=== PATIENT | female | born 1990 | race Hispanic/Latino ===

== ENCOUNTER 2023-05-18 07:31 | Emergency (ER) | payer OTHER ==
[~2023-05-18] VITALS: Ht 160 cm; Wt 85.2 kg
[2023-05-18] MEDS ORDERED: FURO20TA2 PO (07:47)
[2023-05-18] MEDS ORDERED: LISI10TA22 PO (07:48)
[2023-05-18] MEDS ORDERED: HYDR200T46 PO (07:48)
[2023-05-18 09:30] LABS: HEMATOCRIT 40.8 % (36.0-47.0); HEMOGLOBIN 13.5 g/dl (12.0-15.5); MEAN CORPUSCULAR HEMOGLOBIN 28.7 pg (27.0-33.0); MEAN CORPUSCULAR HGB CONC 33.1 g/dl (32.0-36.5); MEAN CORPUSCULAR VOLUME 86.8 fl (80.0-96.0); PLATELET COUNT, AUTOMATED 317 10^3/uL (150-450); WHITE BLOOD COUNT 15.6 10^3/uL (4.0-10.0)
[2023-05-18 09:50] LABS: RSV AMPLIFICATION NEGATIVE (NEGATIVE)
[2023-05-18 09:56] LABS: ALBUMIN 4.2 G/DL (3.2-5.2); ALKALINE PHOSPHATASE 60 U/L (46-116); ALT/SGPT 14 U/L (7.0-40); AST/SGOT 15 U/L (<34); BILIRUBIN,TOTAL 0.9 MG/DL (0.3-1.2); BLOOD UREA NITROGEN 16 MG/DL (9-23); CALCIUM LEVEL 9.8 MG/DL (8.5-10.1); CARBON DIOXIDE LEVEL 24 MMOL/L (20-31); CHLORIDE LEVEL 107 MMOL/L (98-107); CREATININE FOR GFR 0.64 MG/DL (0.55-1.30); GLOMERULAR FILTRATION RATE > 60.0 (>60); GLUCOSE, FASTING 119 MG/DL (60-100); POTASSIUM SERUM 3.4 MMOL/L (3.5-5.1); SODIUM LEVEL 140 MMOL/L (136-145); TOTAL PROTEIN 7.3 G/DL (5.7-8.2)
[2023-05-18 12:31] VITALS: BP 129/76; TEMP 98.2; O2SAT 100
[2023-05-18] MEDS ORDERED: NS 1,000 ML IV ONE (12:35)
[2023-05-18] MEDS ORDERED: KETOROLAC 30 MG/ML 1ML VIAL IV ONE (12:35)
[2023-05-18 12:52] LABS: LDH LACTATE DEHYDROGENASE 190 U/L (120-246)
[2023-05-18 12:53] LABS: CPK CREATINE PHOSPHOKINASE 49 U/L (34-145); RHEUMATOID FACTOR QUANT < 3.5 IU/ML (<14)
[2023-05-18 12:55] LABS: ERYTHROCYTE SEDIMENTATION RATE 30 mm/hr (0-20)
[2023-05-18] MEDS ORDERED: POTASSIUM CHL PWD 20MEQ PACKET PO ONE (13:25)
[2023-05-18] MEDS ORDERED: ACETAMINOPHEN TAB 650MG DOSE (2X325MG) PO ONE (13:30)
[2023-05-18] MEDS ORDERED: PREGABALIN 50 MG CAP (LYRICA) PO ONE (13:30)
[2023-05-18] MEDS ORDERED: KCL 10MEQ/100ML SWI (KRUN) 10 MEQ in IV 1 EA IV ONE ×2 (14:30→17:00)
[2023-05-18] MEDS ORDERED: ISOVUE-370 76% 100ML VIAL As Ordered ONE (14:33)
[2023-05-18] MEDS ORDERED: methylPREDNISolone 125MG 2ML VIAL IV ONE (14:55)
[2023-05-18] MEDS ORDERED: POTASSIUM CHLORIDE 10MEQ SR TABLET PO ONE (15:10)
[2023-05-18] MEDS ORDERED: PRED20TA PO (15:40)
[2023-05-18] MEDS ORDERED: IBUP-1022 PO (15:40)
[2023-05-19 12:07] LABS: ANTINUCLEAR ANTIBODIES DIRECT Negative (Negative)
== END 2023-05-18 15:50 | disposition home or self-care (01) ==
LOC: M ED 07:31
DX: M79.10 Myalgia, unspecified site (principal); Z87.39 Personal history of other diseases of the musculoskeletal system and connective tissue; Z79.899 Other long term (current) drug therapy; Z79.51 Long term (current) use of inhaled steroids; Z79.52 Long term (current) use of systemic steroids
CPT/HCPCS: 74177; 80053; 82550; 83615; 85027; 85652; 86038; 86431; 87631; 96374; 96375; 99284; J1885; J2930; Q9967

== ENCOUNTER 2023-12-21 10:37 | Day surgery (SDC) | payer OTHER ==
[~2023-12-21] VITALS: Ht 160 cm; Wt 91.2 kg
[~2023-12-21 10:37] MED LIST: B-12100010 PO; FURO20TA2 PO; HYDR200T46 PO; IBUP-1022 PO; LISI10TA22 PO; LR 1,000 ML IV SCH; MYCO500T PO; PRED20TA PO
[2023-12-21] MEDS ORDERED: LR 1,000 ML IV SCH (11:00)
[2023-12-21 11:34] LABS: HEMATOCRIT 43.4 % (36.0-47.0); HEMOGLOBIN 13.9 g/dl (12.0-15.5); MEAN CORPUSCULAR HEMOGLOBIN 28.8 pg (27.0-33.0); PLATELET COUNT, AUTOMATED 298 10^3/uL (150-450); RED BLOOD COUNT 4.82 10^6/uL (4.00-5.40); WHITE BLOOD COUNT 8.7 10^3/uL (4.0-10.0)
[2023-12-21] MEDS ORDERED: MIDAZOLAM INJ 2MG/2ML VIAL As Ordered ONE (13:17)
[2023-12-21] MEDS ORDERED: fentaNYL 100 MCG/2 ML INJECTION As Ordered ONE (13:17)
[2023-12-21] MEDS ORDERED: propofoL 200 MG/20 ML VIAL As Ordered ONE (13:17)
[2023-12-21] MEDS: LIDOCAINE W/EPINEPHRINE 1% 20ML VIAL As Ordered ONE (13:28)
[2023-12-21] MEDS: IODINE STRONG SOLN 15ML BTL As Ordered ONE (13:30)
[2023-12-21] MEDS ORDERED: KETOROLAC 60MG 2ML VIAL As Ordered ONE (13:31)
[2023-12-21 13:45] VITALS: BP 143/78; TEMP 97.4; O2SAT 100
== END 2023-12-21 14:50 | disposition home or self-care (01) ==
LOC: M SDC 10:37
PROVIDERS: ATTEND Obstetrics & Gynecology
DX: D06.7 Carcinoma in situ of other parts of cervix (principal); I10 Essential (primary) hypertension; M32.9 Systemic lupus erythematosus, unspecified; Z79.899 Other long term (current) drug therapy
CPT/HCPCS: 36415; 57522; 81025; 85027; 86850; 86900; 86901; 88305; 88307; J1885; J2250; J3010

== ENCOUNTER → 2024-08-30 | Outpatient (REF) | payer OTHER ==
[~2024-08-30] MED LIST changes: -LR 1,000 ML IV SCH
[2024-08-30 18:08] LABS: TOTAL PROTEIN,RANDOM URINE 78.1 MG/DL (0.0-14.0)
[2024-08-30 18:13] LABS: CREATININE,RANDOM URINE 218.6 MG/DL
[2024-08-30 18:34] LABS: AMORPHOUS SEDIMENT LARGE (NEGATIVE); APPEARANCE, URINE TURBID (CLEAR); BACTERIA, URINE AUTO NEGATIVE (NEGATIVE); BILIRUBIN, URINE AUTO NEGATIVE (NEGATIVE); BLOOD, URINE BLOOD NEGATIVE (NEGATIVE); COLOR, URINE AMBER (YELLOW); GLUCOSE, URINE (UA) AUTO NEGATIVE (NEGATIVE); KETONE, URINE AUTO 1+ mg/dL (NEGATIVE); LEUKOCYTE ESTERASE, URINE AUTO NEGATIVE (NEGATIVE); MUCUS, URINE LARGE (NEGATIVE); NITRITE, URINE AUTO NEGATIVE (NEGATIVE); PROTEIN, URINE AUTO 1+ mg/dL (NEGATIVE); RBC, URINE AUTO 0 /HPF (0-3); SPECIFIC GRAVITY URINE AUTO 1.026 (1.002-1.035); SQUAMOUS EPITHELIAL CELL UR AU 0 /HPF (0-6); UROBILINOGEN, URINE AUTO 0.2 mg/dL (0.0-2.0); WBC, URINE AUTO 0 /HPF (0-3)
== END ==
LOC: M SFHCRHEU 15:08
PROVIDERS: ATTEND Internal Medicine
DX: M32.14 Glomerular disease in systemic lupus erythematosus (principal)

== ENCOUNTER → 2024-11-22 | Outpatient (CLI) | payer OTHER ==
[~2024-11-22] MED LIST changes: +ACET-683 PO; +ASPI81CH33 PO; +IBUP80TA PO; +PLAQ200T4 PO
== END ==
LOC: M WHC 08:06
PROVIDERS: ATTEND Advanced Practice Midwife
DX: O10.013 Pre-existing essential hypertension complicating pregnancy, third trimester (principal); Z3A.35 35 weeks gestation of pregnancy

== ENCOUNTER → 2024-11-22 | Outpatient (REF) | payer OTHER | LOC: M SFHCWAGY 12:58 | PROVIDERS: ATTEND Family Medicine | DX: Z34.03 Encounter for supervision of normal first pregnancy, third trimester (principal); Z3A.35 35 weeks gestation of pregnancy ==

== ENCOUNTER → 2024-11-27 | Outpatient (CLI) | payer OTHER | LOC: M WHC 14:50 | PROVIDERS: ATTEND Obstetrics & Gynecology | DX: O28.8 Other abnormal findings on antenatal screening of mother (principal) ==

== ENCOUNTER 2024-12-02 14:50 | Inpatient (IN) | payer OTHER ==
[2024-12-02] VITALS (21 sets, daily range): BP systolic 124–183; BP diastolic 67–106
[~2024-12-02] VITALS: Ht 160 cm; Wt 93.3 kg
[~2024-12-02 14:50] MED LIST changes: -ACET-683 PO; -IBUP80TA PO
[2024-12-02] MEDS ORDERED: HOME MED LIST COMPLETE! XX SCH (15:05)
[2024-12-02 15:54] LABS: PLATELET COUNT, AUTOMATED 259 10^3/uL (150-450)
[2024-12-02] MEDS ORDERED: TRANEXAMIC ACID INJection 1,000 MG in NS 100 ML IV PRN (16:25)
[2024-12-02] MEDS ORDERED: OXYTOCIN INJ 10UNITS/ML 1ML VIAL IM PRN (16:25)
[2024-12-02] MEDS ORDERED: OXYTOCIN DRIP 30 UNITS in IV 1 EA IV PRN ×3 (16:25)
[2024-12-02] MEDS ORDERED: miSOPROStol 50 MCG 1/2 TABLET PO PRN (16:25)
[2024-12-02] MEDS ORDERED: METHYLERGONOVINE MALEATE 0.2 MG/ML 1 ML VIAL IM PRN (16:25)
[2024-12-02] MEDS ORDERED: LIDOCAINE 1% MDV 20 ML VIAL INFIL PRN (16:25)
[2024-12-02] MEDS ORDERED: OXYTOCIN INJ 10UNITS/ML 1ML VIAL IV PRN (16:25)
[2024-12-02] MEDS ORDERED: CARBOPROST TROMETHAMINE 250 MCG/ML AMP IM PRN (16:25)
[2024-12-02] MEDS ORDERED: LR 1,000 ML IV SCH (16:35)
[2024-12-02 16:48] LABS: HIV 1&2 SCREEN NEGATIVE (NEGATIVE)
[2024-12-02] MEDS: LACTATED RINGER'S 1000 ML IV STA (16:56)
[2024-12-02] MEDS: PENICILLIN G POTASSIUM 5 MU IV 5 MU in DEXTROSE 5% (D5W) MINI-BAG PLU 100 ML IV STA (16:57)
[2024-12-02] MEDS: OXYTOCIN DRIP 30 UNITS in IV 1 EA IV SCH (16:57)
[2024-12-02] MEDS: LR 1,000 ML IV SCH (16:57)
[2024-12-02] MEDS ORDERED: NALOXONE INJ 0.4MG/1ML VIAL IV PRN (19:25)
[2024-12-02] MEDS ORDERED: LR 500 ML IV PRN (19:25)
[2024-12-02] MEDS ORDERED: EPIDURAL/PCA KEYS XX PRN (19:25)
[2024-12-02] MEDS ORDERED: diphenhydrAMINE 50 MG/ML VIAL IV PRN (19:25)
[2024-12-02] MEDS: FENTANYL/ROPIVACAINE/NACL BAG 100 ML EPIDURAL SCH (19:37)
[2024-12-02] MEDS: PEN G POT 3,000,000 UNIT/50 ML 3,000,000 UNIT in IV 1 EA IV SCH (22:36)
[2024-12-02] MEDS ORDERED: ACETAMINOPHEN 500 MG TAB As Ordered ONE (23:53)
[2024-12-03] VITALS (10 sets, daily range): BP systolic 119–148; BP diastolic 63–95; O2SAT 98–99
[2024-12-03] MEDS: ONDANSETRON 4MG 2ML VIAL IV PRN (00:06)
[2024-12-03] MEDS: ACETAMINOPHEN 500 MG TAB PO ONE (00:06)
[2024-12-03] MEDS ORDERED: METHYLERGONOVINE MALEATE 0.2 MG TAB PO PRN (00:45)
[2024-12-03] MEDS ORDERED: MOM 30 ML SUSPENSION UDC PO PRN (00:45)
[2024-12-03] MEDS ORDERED: DOCUSATE SODIUM 100 MG CAPSULE PO PRN (00:45)
[2024-12-03] MEDS ORDERED: DIBUCAINE 1% OINTMENT 30 GM TOP PRN (00:45)
[2024-12-03] MEDS ORDERED: ANUSOL HC CREAM 30 GM TOP PRN (00:45)
[2024-12-03 00:48] LABS: CORD GAS ABE A -6.6; CORD GAS ABE V -4.2; CORD GAS HCO3 A 21.9 MMOL/L; CORD GAS HCO3 V 21.9 MMOL/L; CORD GAS O2 SAT A 55.2 %; CORD GAS O2 SAT V 68.1 %; CORD GAS PCO2 A 54.6 mmHg; CORD GAS PCO2 V 43.6 mmHg; CORD GAS PH A 7.221 UNITS; CORD GAS PH V 7.319 UNITS; CORD GAS PO2 A 25.9 mmHg; CORD GAS PO2 V 28.3 mmHg; CORD GAS SBC A 18.2 MMOL/L; CORD GAS SBC V 20.3 MMOL/L; CORD GAS TCO2 A 23.6 MMOL/L; CORD GAS TCO2 V 23.2 MMOL/L
[2024-12-03] MEDS: PRENATAL VITAMINS CHEWABLE TABLET PO SCH (09:00)
[2024-12-03] MEDS: HYDROXYCHLOROQUINE 200 MG TAB PO ONE (11:00)
[2024-12-03] MEDS: ACETAMINOPHEN 500 MG TAB PO PRN (13:19)
[2024-12-03] MEDS: IBUPROFEN 800 MG TAB PO PRN (19:58)
[2024-12-03] MEDS: HYDROXYCHLOROQUINE 200 MG TAB PO SCH (21:00)
[2024-12-04 06:00] VITALS: BP 122/78; O2SAT 98
[2024-12-04] MEDS: RHOGAM 300MCG (1500IU) INJ IM SCH (07:10)
[2024-12-04] MEDS: CYANOCOBALAMIN 500 MCG TAB PO SCH (07:42)
[2024-12-04] MEDS ORDERED: ACET-683 PO (12:41)
[2024-12-04] MEDS ORDERED: IBUP80TA PO (12:41)
[2024-12-05] MEDS ORDERED: MEASLES,MUMPS,RUBELLA VACCINE INJ (MMR-II) SC.IMMUN ONE (09:00)
== END 2024-12-04 14:25 | disposition home or self-care (01) | DRG 807 ==
LOC: M LDI 14:50 → M OBS 12-03 02:31
PROVIDERS: ADMIT Obstetrics & Gynecology; ATTEND Obstetrics & Gynecology
PROC: 3E033VJ Introduction of Other Hormone into Peripheral Vein, Percutaneous Approach (ICD-10-PCS; 2024-12-02)
PROC: 10E0XZZ Delivery of Products of Conception, External Approach (ICD-10-PCS; principal; 2024-12-03)
DX: O11.4 Pre-existing hypertension with pre-eclampsia, complicating childbirth (principal); Z37.0 Single live birth; Z3A.37 37 weeks gestation of pregnancy; O99.824 Streptococcus B carrier state complicating childbirth; Z79.899 Other long term (current) drug therapy; O10.02 Pre-existing essential hypertension complicating childbirth

== ENCOUNTER → 2025-01-31 | Outpatient (REF) | payer OTHER ==
[~2025-01-31] MED LIST changes: +ACET-683 PO; -IBUP-1022 PO; +IBUP600T42 PO; +IBUP80TA PO
[2025-01-31 18:54] LABS: TOTAL PROTEIN,RANDOM URINE 60.7 MG/DL (0.0-14.0)
[2025-01-31 18:57] LABS: BASO # 0.0 10^3/uL (0.0-0.2); BASO % 0.4 % (0.0-1.0); EOS # 0.1 10^3/uL (0.0-0.5); EOS % 1.2 % (0.0-3.0); LYMPH # 2.4 10^3/uL (1.5-5.0); LYMPH % 26.3 % (24.0-44.0); MONO # 0.7 10^3/uL (0.0-0.8); MONO % 8.2 % (2.0-8.0); NEUTROPHILS # 5.7 10^3/uL (1.5-8.5); NEUTROPHILS % 63.6 % (36.0-66.0); PLATELET COUNT, AUTOMATED 269 10^3/uL (150-450)
[2025-01-31 19:00] LABS: APPEARANCE, URINE HAZY (CLEAR); BACTERIA, URINE AUTO NEGATIVE (NEGATIVE); BILIRUBIN, URINE AUTO NEGATIVE (NEGATIVE); BLOOD, URINE BLOOD NEGATIVE (NEGATIVE); GLUCOSE, URINE (UA) AUTO NEGATIVE (NEGATIVE); KETONE, URINE AUTO NEGATIVE (NEGATIVE); LEUKOCYTE ESTERASE, URINE AUTO NEGATIVE (NEGATIVE); MUCUS, URINE SMALL (NEGATIVE); NITRITE, URINE AUTO NEGATIVE (NEGATIVE); PROTEIN, URINE AUTO 1+ mg/dL (NEGATIVE); RBC, URINE AUTO 0 /HPF (0-3); SPECIFIC GRAVITY URINE AUTO 1.025 (1.002-1.035); SQUAMOUS EPITHELIAL CELL UR AU 7 /HPF (0-6); UROBILINOGEN, URINE AUTO 0.2 mg/dL (0.0-2.0); WBC, URINE AUTO 1 /HPF (0-3)
[2025-01-31 19:13] LABS: ALT/SGPT 37 U/L (7.0-40); AST/SGOT 29 U/L (<34); C REACTIVE PROTEIN QUANTITATIV 0.54 MG/DL (<1.0); CALCIUM LEVEL 9.7 MG/DL (8.5-10.1); CARBON DIOXIDE LEVEL 28 MMOL/L (20-31); CHLORIDE LEVEL 105 MMOL/L (98-107); CREATININE FOR GFR 0.66 MG/DL (0.55-1.30); GLOMERULAR FILTRATION RATE > 90.0 (>60); POTASSIUM SERUM 3.9 MMOL/L (3.5-5.1); SODIUM LEVEL 143 MMOL/L (136-145)
[2025-01-31 19:15] LABS: TOTAL 25(OH) VITAMIN D 35.4 NG/ML (20.0-100.0)
[2025-01-31 19:17] LABS: COMPLEMENT C4 30.7 MG/DL (12-36)
[2025-01-31 19:26] LABS: ERYTHROCYTE SEDIMENTATION RATE 31 mm/hr (0-20)
== END ==
LOC: M SFHCRHEU 16:06
PROVIDERS: ATTEND Internal Medicine
DX: M32.14 Glomerular disease in systemic lupus erythematosus (principal); E55.9 Vitamin D deficiency, unspecified